=== PATIENT | male | born 1965 | race Caucasian/White ===

== ENCOUNTER 2019-10-18 05:48 | Observation (INO) | payer BC ==
[2019-10-18] VITALS (19 sets, daily range): BP systolic 97–151; BP diastolic 66–101
[~2019-10-18] VITALS: Ht 177.8 cm; Wt 93.9 kg
--- NOTE | 2019-10-18 05:55 | NUR ---
PT AMBULATORY TO ROOM # 13 FOR BEDSIDE TRIAGE.
[2019-10-18 06:33] LABS: HEMATOCRIT 40.2 % (39.0-50.0); HEMOGLOBIN 13.3 g/dl (14.0-18.0); IMMATURE GRANULOCYTES 0.3 % (0.0-5.0); MEAN CORPUSCULAR HGB 30.9 pG CALC (26.0-32.0); MEAN CORPUSCULAR HGB CONC 33.1 g/dL CAL (32.0-36.0); NEUT# 5.78 thou/uL (1.82-7.42); RED BLOOD COUNT 4.31 mill/uL (4.70-6.10); RED CELL DISTRI WIDTH 13.6 % (11.5-15.5)
[2019-10-18 06:35] LABS: MEAN CELL VOLUME 93.3 fL CALC (80.0-100.0)
[2019-10-18 06:37] LABS: ALBUMIN 4.2 g/dL (3.2-5.0); AMYLASE 52 u/l (30-110); BUN 18 mg/dL (9-20); BUN/CREATININE RATIO 19 (12-20 (CALC)); CHLORIDE 105 mmol/l (95-108); CREATININE 0.9 mg/dL (0.7-1.3); GFR > 60 ML/MIN (>=60 (CALC)); GFR FOR AFR.AMER. > 60 ML/MIN (>=60 (CALC)); LIPASE 52 u/l (23-300); POTASSIUM 4.4 mmol/l (3.5-5.1); SGOT/AST 47 u/l (17-59); SODIUM 133 mmol/l (137-146); TOTAL PROTEIN 7.1 g/dL (6.3-8.2)
[2019-10-18 06:38] LABS: ALKALINE PHOSPHATASE 121 u/l (38-126); ANION GAP 13 (6-22 (CALC)); BILIRUBIN, TOTAL 2.8 mg/dL (0.0-1.4); CARBON DIOXIDE 19 mmol/l (22-30)
[2019-10-18 06:39] LABS: INTERNATIONAL NORMALIZED RATIO 1.3 RATIO (0.7-1.3)
[2019-10-18 06:49] LABS: MYOGLOBIN 35 ng/mL (0 - 121)
--- NOTE | 2019-10-18 06:55 | NUR ---
PT SKIN PWD, NO DISTRESS, NO CP NO SOB. PT STATES HE IS FEELING BETTER AND NOT SOB AT THIS TIME. VSS. CARDIZEM GTT CONTINUES AT 10 MG/HR AN HOUR. ZOSYN INFUSING. URINE COLLECTED. PT UPDATED ON POC. PT HAS HOUSE ARREST ANKLE MONITOR TO RT ANKLE.
--- NOTE | 2019-10-18 07:49 | NUR ---
PT UPDATED ON POC AND PLAN TO ADMIT. PT AGREEABLE. VSS. PT DENIES SOB.
[2019-10-18] MEDS ORDERED: CEPHALEXIN500 MG PO (07:51)
[2019-10-18] MEDS ORDERED: METOPROL TAR25 MG PO (07:52)
[2019-10-18] MEDS ORDERED: CYCLOBENZAPR5 MG PO (07:52)
[2019-10-18] MEDS ORDERED: EC ASPIRIN325 MG PO (07:53)
--- NOTE | 2019-10-18 08:15 | NUR ---
PT RESTING SUPIN IN NO DISTRESS. VSS. GIVEN PO GATORADE. AWAITING RESULTS AND DISPOSITION
[2019-10-18 08:16] LABS: URINE BILIRUBIN - DIPSTICK NEGATIVE (NEGATIVE); URINE BLOOD DIPSTICK TRACE-INTACT (NEGATIVE); URINE COLOR YELLOW; URINE GLUCOSE - DIPSTICK NEGATIVE (NEGATIVE); URINE KETONE NEGATIVE (NEGATIVE); URINE LEUK ESTERASE NEGATIVE (NEGATIVE); URINE NITRITE - DIPSTICK NEGATIVE (Negative); URINE PROTEIN - DIPSTICK NEGATIVE (NEG-TRACE); URINE SPECIFIC GRAVITY <=1.005; URINE UROBILINOGEN - DIPSTICK 0.2 E.U./dL (0.2)
--- NOTE | 2019-10-18 09:15 | NUR ---
PT ALERT AND IN NO DISTRESS. AWAITING ADMIT AND PT AGREEABLE
--- NOTE | 2019-10-18 10:00 | NUR ---
PT TRANSPORTED TO ICU ON CONTINUOUS ONCOLOGY PHYSICIAN ASSISTANT IN NO DISTRESS
--- NOTE | 2019-10-18 10:05 | NUR ---
PT TO ICU BED 5 VIA STRETCHER ACCOMPANIED BY ER NURSE. PT ABLE TO TRANSFER SELF TO BED. PT IS ALERT AND ORIENTED X3. ADMISSION ASSESSMENT COMPLETED AT THIS TIME. IV PATENT X2. ORIENTED TO ROOM AND UNIT. PT DOES HAVE PROBATION ANKLET IN PLACE AND WILL NEED TO LEAVE IN PLACE. CALL LIGHT IN REACH. WILL CONTINUE TO MONITOR.
--- NOTE | 2019-10-18 11:30 | NUR ---
SET UP FOR NOON MEAL AT THIS TIME.
--- NOTE | 2019-10-18 11:45 | NUR ---
IV site discontinued, cath intact. No edema , no redness, voices no discomfort.
--- NOTE | 2019-10-18 11:55 | NUR ---
DC INSTRUCTIONS REVIEWED WITH PATIENT. ALL REFERRALS GIVEN. BEST HANDLEY PRESENT WELL. PT VERBALIZED UNDERSTANDING.
--- NOTE | 2019-10-18 12:13 | NUR ---
LAB AT BEDSIDE AT THIS TIME.
--- NOTE | 2019-10-18 13:34 | NUR ---
PT RESTING IN BED WITH EYES CLOSED. RESP ARE EVEN AND UNLABORED. NO DISTRESS NOTED. CALL LIGHT IN REACH. WILL CONTINUE TO MONITOR.
--- NOTE | 2019-10-18 13:55 | NUR ---
Dakota CAMPBELL AT BEDSIDE AT THIS TIME.
--- NOTE | 2019-10-18 15:18 | NUR ---
PT SITTING UP O SIDE OF BED TALKING ON PHONED RESP ARE EVEN AND UNLABORED. NO DISTRESS NOTED. CALL LIGHT IN REACH. WILL CONTINUE TO MONITOR
--- NOTE | 2019-10-18 16:05 | NUR ---
APOLLO HOLLY APRN AT BEDSIDE AT THIS TIME.
--- NOTE | 2019-10-18 17:30 | NUR ---
PT SITTING UP ON SIDE OF EATING DINNER. RESP ARE EVEN AND UNLABORED. NO DISTRESS NOTED. CALL LIGHT IN REACH. WILL CONTINUE TO MONITOR
--- NOTE | 2019-10-18 18:15 | NUR ---
LAB AT BEDSIDE AT THIS TIME
--- NOTE | 2019-10-18 19:15 | NUR ---
awake. denies distress. modeling instructor shows a fib occas paced beats hr 78. #18 rac cardizem gtt infusing @ 10mg hr. #20 lt hand saline lock. po fluids taken well. voids per bsc. fall & air/contact precautions cont.
--- NOTE | 2019-10-18 22:00 | NUR ---
talking on cell phone. no distress. awake overnight monitor shows a fib occas paced beats hr 76.
[2019-10-19] VITALS (47 sets, daily range): BP systolic 87–146; BP diastolic 50–98
--- NOTE | 2019-10-19 00:01 | NUR ---
eyes closed. no distress. monitor and storage bin tender shows a fib occas paced beats hr 72.
--- NOTE | 2019-10-19 02:00 | NUR ---
resting quietly. resps even & unlabored. no apparent distress.
--- NOTE | 2019-10-19 04:00 | NUR ---
eyes closed. no apparent distress. cardiac cath lab technologist shows a fib occas paced beats hr 74.
--- NOTE | 2019-10-19 04:38 | NUR ---
lab here. blood drawn.
[2019-10-19 04:58] LABS: HEMATOCRIT 37.9 % (39.0-50.0); HEMOGLOBIN 12.3 g/dl (14.0-18.0); MEAN CELL VOLUME 94.5 fL CALC (80.0-100.0); MEAN CORPUSCULAR HGB 30.7 pG CALC (26.0-32.0); MEAN CORPUSCULAR HGB CONC 32.5 g/dL CAL (32.0-36.0); RED BLOOD COUNT 4.01 mill/uL (4.70-6.10); RED CELL DISTRI WIDTH 13.7 % (11.5-15.5)
[2019-10-19 05:20] LABS: ANION GAP 10 (6-22 (CALC)); BUN 21 mg/dL (9-20); BUN/CREATININE RATIO 20 (12-20 (CALC)); CALCULATED LDLCHOLESTEROL 61 mg/dL (62-129 (CALC)); CARBON DIOXIDE 25 mmol/l (22-30); CHLORIDE 103 mmol/l (95-108); CHOLESTEROL HDL RATIO 3.9 (<4.4 (CALC)); CREATININE 1.1 mg/dL (0.7-1.3); GFR > 60 ML/MIN (>=60 (CALC)); GFR FOR AFR.AMER. > 60 ML/MIN (>=60 (CALC)); HDL CHOLESTEROL 25 mg/dL (>=40); POTASSIUM 4.3 mmol/l (3.5-5.1); SODIUM 134 mmol/l (137-146); TOTAL CHOLESTEROL 97 mg/dl (0-199); TOTAL TRIGLYCERIDES 57 mg/dl (30-149); VLDL CHOLESTROL 11 mg/dl (8-62 (CALC))
--- NOTE | 2019-10-19 06:00 | NUR ---
no acute change in condition. pvc monitor shows a fib occas paced beats.
--- NOTE | 2019-10-19 06:45 | NUR ---
REPORT RECEIVED FROM MJ CAGE. CARE ASSUMED.
--- NOTE | 2019-10-19 07:20 | NUR ---
PT RESTING IN BED AWAKE. PT IS ALERT AND ORIENTED X3. SHIFT ASSESSMENT COMPLETED AT THIS TIME. IV PATENT X2. CARDIZEM TITRATED PER CHARTING. CALL LIGHT IN REACH. WILL CONTINUE TO MONITOR.
--- NOTE | 2019-10-19 07:45 | NUR ---
[employer] PACEMAKER INTERROGATED AT THIS TIME.
--- NOTE | 2019-10-19 07:58 | NUR ---
DR CUELLAR AT BEDSIDE.
--- NOTE | 2019-10-19 09:15 | NUR ---
RECEIVED PACEMAKER INTERROGATION REPORT AND FAXED TO DR FERGUSON'S OFFICE.
--- NOTE | 2019-10-19 10:00 | NUR ---
PT SITTING UP ON SIDE OF BED. VSS ON MONITOR. RESP ARE EVEN AND UNLABORED. NO DISTRESS NOTED. CALL LIGHT IN REACH. WILL CONTINUE TO MONITOR.
--- NOTE | 2019-10-19 12:00 | NUR ---
PT SITTING UP ON SIDE OF BED EATING LUNCH. RESP ARE EVEN AND UNLABORED. VSS ON MONITOR. CALL LIGHT IN REACH. WILL CONTINUE TO MONITOR.
--- NOTE | 2019-10-19 13:40 | NUR ---
REALTY SPECIALIST AT BEDSIDE AT THIS TIME.
--- NOTE | 2019-10-19 16:00 | NUR ---
PT RESTING IN BED AWAKE AND WATCHING TV. RESP ARE EVEN AND UNLABORED. NO DISTRESS NOTED. CALL LIGHT IN REACH. WILL CONTINUE TO MONITOR.
--- NOTE | 2019-10-19 18:00 | NUR ---
PT RESTING IN BED AWAKE. RESP ARE EVEN AND UNLABORED. NO DISTRESS NOTED. CALL LIGHT IN REACH. WILL CONTINUE TO MONITOR.
--- NOTE | 2019-10-19 19:30 | NUR ---
awake. denies distress. athletic monitor shows a fib hr 114. #18 rac & #20 lt hand saline locks. po fluids taken well. voids per urinal. fall precautions cont.
--- NOTE | 2019-10-19 22:00 | NUR ---
watching tv. no distress. business performance specialist shows a fib hr 110.
[2019-10-20] VITALS (11 sets, daily range): BP systolic 93–140; BP diastolic 73–96
--- NOTE | 2019-10-20 00:01 | NUR ---
eyes closed. no distress. hotel assistant manager shows a fib occas paced beats hr 84.
--- NOTE | 2019-10-20 02:00 | NUR ---
resting quietly. resps even & unlabored. no apparent distress.
--- NOTE | 2019-10-20 04:00 | NUR ---
eyes closed. no distress. logistics management specialist shows a fib occas paced beats hr 110.
--- NOTE | 2019-10-20 05:47 | NUR ---
eyes closed. no distress. director of cardiac cath lab shows a fib occas paced beats hr 92.
--- NOTE | 2019-10-20 08:14 | NUR ---
REPORT RECEIVED FROM MJ CAGE. CARE ASSUMED. ASSESSSMENT AND VITALS COMPLETE. PT IS ALERT AND ORIETED X3 AND AMBULATORY IN HIS ROOM. NO EVIDENCE ODF DISTRESS. LUNGS ARE CLEAR ON ROOM AIR. NO SHORTNESS OF BREATH. AFEBRILE. HEART RATE RUNS TACHY WITH MOVEMENT. IV SITE IS HEALTHY; DISCUSSED POC. CALL CHATTERJEE WITHIN REACH. WILL CONTINUE TO MONITOR.
--- NOTE | 2019-10-20 11:15 | NUR ---
OBTAINED PT FROM INESSA HENLEY. PT LAYING SUPINE IN BED, NO SIGNS OF DISTRESS. VITALS STABLE. ITEMS WITHIN REACH.
--- NOTE | 2019-10-20 13:26 | NUR ---
PATIENT SITTING ON SIDE OF BED, TALKING ON PHONE. NO COMPLAINTS OR CONCERNS AT THIS TIME. VITALS STABLE. ITEMS WITHIN REACH. BED IN LOW POSITION.
--- NOTE | 2019-10-20 15:27 | NUR ---
PATIENT LYING IN BED ON RIGHT SIDE. DENIES ANY COMPLAINTS OR CONCERNS AT THIS TIME. VITALS WNL. BED IN LOW POSITION. CALL LIGHT WITHIN REACH.
--- NOTE | 2019-10-20 17:13 | NUR ---
PATIENT SITTING ON BEDSIDE ON HIS PHONE. NO SIGNS OF DISTRESS. HR STABLE. DINNER TRAY PROVIDED.
--- NOTE | 2019-10-20 20:35 | NUR ---
ASSESSMENT COMPLETED. IV SITES X2 PATENT AND SL, FLUSHED WITH NS. MEDICAL MALPRACTICE PARALEGAL IN PLACE AND READING AFIB HR FLUCTUATING 90'S TO 110'S. B/P WNL AND MEDICATED WITH ORDERED LOPRESSOR. DENIES NEEDS/PAIN. SNACK AND FRESH WATER PROVIDED. URINAL AND BSC EMPTIED. CALL LIGHT IS IN REACH.
--- NOTE | 2019-10-20 22:00 | NUR ---
VSS. NO DISTRESS NOTED; DENIES NEEDS. VOICES NO CONCERNS. CALL LIGHT IS IN REACH.
[2019-10-21] VITALS: BP 96/76
--- NOTE | 2019-10-21 | NUR ---
PT. SITTING UP IN BED WITH NO DISTRESS NOTED. DENIES NEEDS/PAIN. ENCOURAGED TO CALL FOR ANY NEEDS. CALL LIGHT IS IN REACH.
[2019-10-21 02:00] VITALS: BP 120/80
--- NOTE | 2019-10-21 02:05 | NUR ---
RESTING IN BED WITH NO DISTRESS NOTED; DENIES NEEDS/PAIN,ENCOURAGED TO CALL FOR ANY NEEDS.
[2019-10-21 04:00] VITALS: BP 96/73
--- NOTE | 2019-10-21 04:00 | NUR ---
RESTING IN BED WITH NO DISTRESS NOTED; RESP. EVEN AND UNLABORED.
--- NOTE | 2019-10-21 05:15 | NUR ---
PT. RESTING IN BED WITH NO DISTRESS NOTED. DENIES NEEDS/PAIN. URINAL AND BSC EMPTIED. SNACK AND FRESH WATER PROVIDED. CALL LIGHT IS IN REACH.
[2019-10-21 06:00] VITALS: BP 101/67
--- NOTE | 2019-10-21 07:05 | NUR ---
PATIENT SITTING ON SIDE OF BED. A&OX3. DENIES ANY PAIN OR NEEDS AT THIS TIME. VITALS STABLE ON MONITOR. BED IN LOW POSITION. CALL LIGHT WITHIN REACH.
[2019-10-21 08:54] LABS: ANION GAP 11 (6-22 (CALC)); BUN 15 mg/dL (9-20); BUN/CREATININE RATIO 18 (12-20 (CALC)); CARBON DIOXIDE 28 mmol/l (22-30); CHLORIDE 101 mmol/l (95-108); CREATININE 0.9 mg/dL (0.7-1.3); GFR > 60 ML/MIN (>=60 (CALC)); GFR FOR AFR.AMER. > 60 ML/MIN (>=60 (CALC)); POTASSIUM 4.4 mmol/l (3.5-5.1); SODIUM 136 mmol/l (137-146)
--- NOTE | 2019-10-21 09:15 | NUR ---
PATIENT AMBULATED TO BATHROOM WITHOUT DIFFICULTY. BMX1. PLACED BACK ON MONITOR. NO FURTHER NEEDS OR CONCERNS.
--- NOTE | 2019-10-21 10:30 | NUR ---
SEED SORTER WITH LIFE VEST AT BEDSIDE TO APPLY, EDUCATE AND INSTRUCT PT ON LIFE VEST USE.
--- NOTE | 2019-10-21 11:28 | NUR ---
LIFE VEST IN PLACE. WILL ADVISE DR. COLVIN. VITALS REMAIN STABLE. LUNCH PROVIDED. PERSONAL ITEMS AND CALL LIGHT WITHIN REACH.
[2019-10-21 12:00] VITALS: BP 114/82
[2019-10-21] MEDS ORDERED: LOPRESSOR 550 MG/TAB PO (12:47)
[2019-10-21] MEDS ORDERED: SPIRONOLACT50 MG PO (12:47)
[2019-10-21] MEDS ORDERED: XARELTO20 MG PO (12:47)
[2019-10-21] MEDS ORDERED: ASPIRIN ADULT L81 M2 PO (12:48)
[2019-10-21] MEDS ORDERED: DIGOX250 MCG PO (12:49)
--- NOTE | 2019-10-21 13:30 | NUR ---
PATIENT BEING DISCHARGED AT THIS TIME. PAPERWORK, EDUCATION AND INSTRUCTIONS PROVIDED. [employer] ID#[id number]. ALL PERSONAL ITEMS WITH PATIENT, TRANSPORTED DOWNSTAIRS VIA WHEELCHAIR.
== END 2019-10-21 13:30 | disposition home or self-care (01) | DRG 309 ==
LOC: ED 05:48 → ED-I 07:50 → ED 08:08 → ICU 08:09
PROVIDERS: Emergency Medicine; Internal Medicine; Nurse Practitioner; ADMIT Internal Medicine; ATTEND Internal Medicine
DX: I48.20 Chronic atrial fibrillation, unspecified (principal); I50.22 Chronic systolic (congestive) heart failure; R19.7 Diarrhea, unspecified; T45.516A Underdosing of anticoagulants, initial encounter; Z91.128 Patient's intentional underdosing of medication regimen for other reason; Z79.82 Long term (current) use of aspirin; Z87.891 Personal history of nicotine dependence; Z95.0 Presence of cardiac pacemaker; Z20.828 Contact with and (suspected) exposure to other viral communicable diseases
CPT/HCPCS: J1160; J1650; Q9967

== ENCOUNTER 2020-01-11 08:25 | Observation (INO) | payer BC ==
[~2020-01-11] VITALS: Ht 177.8 cm; Wt 99.9 kg
[~2020-01-11 08:25] MED LIST: ASPIRIN ADULT L81 M2 PO; CEPHALEXIN500 MG PO; CYCLOBENZAPR5 MG PO; DIGOX250 MCG PO; EC ASPIRIN325 MG PO; LOPRESSOR 550 MG/TAB PO; METOPROL TAR25 MG PO; SPIRONOLACT50 MG PO; XARELTO20 MG PO
--- NOTE | 2020-01-11 08:40 | NUR ---
PT SEEN BY PROVIDER AWAITING RESULTS OF LAB , PT APPEARS TO NOT BE IN ACUTE DISTRESS
[2020-01-11 08:46] LABS: HEMATOCRIT 35.4 % (39.0-50.0); HEMOGLOBIN 11.8 g/dl (14.0-18.0); IMMATURE GRANULOCYTES 0.4 % (0.0-5.0); MEAN CELL VOLUME 93.2 fL CALC (80.0-100.0); MEAN CORPUSCULAR HGB 31.1 pG CALC (26.0-32.0); MEAN CORPUSCULAR HGB CONC 33.3 g/dL CAL (32.0-36.0); NEUT# 10.08 thou/uL (1.82-7.42); RED BLOOD COUNT 3.8 mill/uL (4.70-6.10); RED CELL DISTRI WIDTH 13.7 % (11.5-15.5)
[2020-01-11] MEDS ORDERED: DILTIAZEM90 M1 PO (08:57)
[2020-01-11] MEDS ORDERED: LISINOPRIL2.5 MG PO ×2 (08:58→12:06)
[2020-01-11 09:13] LABS: ANION GAP 9 (6-22 (CALC)); BUN 21 mg/dL (9-20); BUN/CREATININE RATIO 28 (12-20 (CALC)); CARBON DIOXIDE 26 mmol/l (22-30); CHLORIDE 106 mmol/l (95-108); CREATININE 0.8 mg/dL (0.7-1.3); GFR > 60 ML/MIN (>=60 (CALC)); GFR FOR AFR.AMER. > 60 ML/MIN (>=60 (CALC)); POTASSIUM 4.5 mmol/l (3.5-5.1); SODIUM 137 mmol/l (137-146)
[2020-01-11] MEDS ORDERED: DILTIAZEM CD180 MG PO (12:07)
[2020-01-11] MEDS ORDERED: SPIRONOLACTONE50 MG PO (12:08)
[2020-01-11 12:50] VITALS: BP 108/74
--- NOTE | 2020-01-11 12:50 | NUR ---
PATIENT RECEIVED FROM ER AT THIS TIME. PATIENT ALERT AND ORIENTED X3. PATIENT ORIENTED TO ROOM AND SURROUNDINGS. PATIENT ASSESSED AND SHOWS NO SIGNS OF SKIN ISSUES ON BODY. PATIENT STATES HIS PAIN LEVEL IS A 4 AND THAT THE NITRO THAT WAS GIVEN TO HIM IN ER HELPED. ALL SAFETY MEASURES ARE IN PLACE CALL LIGHT NEAR AND PATIENT ADVISED TO CALL FOR HELP NEEDED. LUNCH WAS PROVIDED FOR PATIENT AT THIS TIME. PATIENT DOES HAVE A COURT ORDERED ELECTRONIC ANKLE BR[place]LETT LOCATED ON HIS RIGHT ANKLE AND PRISONER CLASSIFICATION INTERVIEWER LOCATED ON BEDSIDE TABLE.
[2020-01-11 13:25] LABS: URINE BILIRUBIN - DIPSTICK NEGATIVE (NEGATIVE); URINE BLOOD DIPSTICK SMALL (NEGATIVE); URINE COLOR YELLOW; URINE GLUCOSE - DIPSTICK NEGATIVE (NEGATIVE); URINE KETONE NEGATIVE (NEGATIVE); URINE LEUK ESTERASE NEGATIVE (NEGATIVE); URINE NITRITE - DIPSTICK NEGATIVE (Negative); URINE PH 5.5 (4.5-8.0); URINE PROTEIN - DIPSTICK NEGATIVE (NEG-TRACE); URINE UROBILINOGEN - DIPSTICK 0.2 E.U./dL (0.2)
[2020-01-11 13:31] LABS: URINE RBC 0-2 RBC/hpf (0-5)
--- NOTE | 2020-01-11 15:52 | NUR ---
PATIENT IN BED RESTING AT THIS TIME WATCHING TV. PATIENT STATES HIS PAIN LEVEL IS A 3 OUT OF A PAIN SCALE OF 0-10. PATIENT TELE IN PLACE AND PATIENT DENIES ALL OTHER NEEDS AT THIS TIME.
[2020-01-11 15:55] VITALS: BP 111/69
[2020-01-11 19:00] VITALS: BP 98/63
--- NOTE | 2020-01-11 19:30 | NUR ---
PATIENT UP IN THE ROOM-STEADY ON HIS FEET. ALERT AND ORIENTEDX3. PATIENT STATES THAT HIS CHEST PAIN IS MUCH BETTER THAN ON ADMISSION-3/10 ON PAIN SCALE. TELE MONITOR IN PLACE-SHOWS PACED AT 83. STATES THAT HE IS VOIDING WITHOUT ANY DIFFICULTY. SALINE LOCK TO LAC INTACT AND HEALTHY AT THIS TIME. SAFETY PRECAUTIONS REINFORCED. CALL LIGHT IN REACH. WILL CONT TO MONITOR.
--- NOTE | 2020-01-11 21:00 | NUR ---
PATIENT RESTING IN BED-NO COMPLAINTS AT THIS TIME. LAST TROP WAS NEG. PATIENT PROVIDED WITH HS SNACK. CALL LIGHT IN REACH, WILL CONT TO MONITOR.
[2020-01-12] VITALS: BP 95/60
--- NOTE | 2020-01-12 02:14 | NUR ---
PATIENT APPEARS SLEEPING AT THIS TIME WITH EYES CLOSED. RESPS ARE EVEN AND UNLABORED. TELE MONITOR IN PLACE. CALL LIGHT IN REACH,. WILL CONT TO MONITOR.
[2020-01-12 04:00] VITALS: BP 105/65
--- NOTE | 2020-01-12 06:00 | NUR ---
PATIENT RESTING IN BED-NO COMPLAINTS. TELE MONITOR IN PLACE. CALL LIGHT IN REACH. WILL CONT TO MONITOR.
[2020-01-12 06:52] VITALS: BP 100/66
--- NOTE | 2020-01-12 07:10 | NUR ---
REPORT RECEIVED FROM INESSA TARANGO;PT RESTING IN SEMI FOWLERS POSITION;INTRODUCED SELF TO PT AND POC DISCUSSED;RESPIRATIONS EVEN AND UNLABORED ON RA;PT DENIES ANY CURRENT PAIN OR DISCOMFORTS;TELE MONITORING IN PLACE;PT ENCOURAGED TO CALL FOR ASSISTANCE IF NEEDED;FALL PRECAUTIONS IN PLACE WITH BED IN THE LOWEST POSITION AND CALL LIGHT IN REACH;WILL CONTINUE TO MONITOR
--- NOTE | 2020-01-12 07:52 | NUR ---
LAB AT BEDSIDE
[2020-01-12 08:08] LABS: HEMATOCRIT 36.9 % (39.0-50.0); HEMOGLOBIN 12.5 g/dl (14.0-18.0); IMMATURE GRANULOCYTES 0.5 % (0.0-5.0); MEAN CELL VOLUME 92.3 fL CALC (80.0-100.0); MEAN CORPUSCULAR HGB 31.3 pG CALC (26.0-32.0); MEAN CORPUSCULAR HGB CONC 33.9 g/dL CAL (32.0-36.0); NEUT# 5.07 thou/uL (1.82-7.42); RED CELL DISTRI WIDTH 13.8 % (11.5-15.5)
--- NOTE | 2020-01-12 08:17 | NUR ---
AT BEDSIDE DISCUSSING POC.
[2020-01-12 08:33] LABS: ALBUMIN 3.9 g/dL (3.2-5.0); ALKALINE PHOSPHATASE 78 u/l (38-126); BILIRUBIN, TOTAL 1.7 mg/dL (0.0-1.4); BUN 16 mg/dL (9-20); BUN/CREATININE RATIO 22 (12-20 (CALC)); CARBON DIOXIDE 27 mmol/l (22-30); CHLORIDE 102 mmol/l (95-108); CREATININE 0.7 mg/dL (0.7-1.3); GFR > 60 ML/MIN (>=60 (CALC)); GFR FOR AFR.AMER. > 60 ML/MIN (>=60 (CALC)); SGOT/AST 23 u/l (17-59); SODIUM 136 mmol/l (137-146); TOTAL PROTEIN 6.6 g/dL (6.3-8.2)
[2020-01-12 08:35] LABS: ANION GAP 11 (6-22 (CALC)); POTASSIUM 4.2 mmol/l (3.5-5.1)
--- NOTE | 2020-01-12 08:35 | NUR ---
PT RESTING AT BEDSIDE;PT DENIES ANY CURRENT PAIN OR DISCOMFORTS,PAIN SCALE AND REPORTING EDUCATED;RESPIRATIONS EVEN AND UNLABORED ON RA,CLEAR LUNG SOUNDS;ABDOMEN SOFT ON PALPATION AND ACTIVE IN ALL 4 QUADRANTS;STRONG PEDAL PULSES;SKIN INTACT;TELE MONITORING IN PLACE;#20G TO LAC FLUSHED AND PATENT,SITE APPEARS HEALTHY;PT DENIES ANY ADDITIONAL NEEDS AT THIS TIME AND IS ENCOURAGED TO CALL FOR ASSISTANCE IF NEEDED;FALL PRECAUTIONS IN PLACE WITH BED IN THE LOWEST POSITION AND CALL LIGHT IN REACH;WILL CONTINUE TO MONITOR
[2020-01-12] MEDS ORDERED: SPIRONOLACTONE50 MG PO (10:17)
[2020-01-12 10:30] VITALS: BP 101/67
--- NOTE | 2020-01-12 11:25 | NUR ---
ALL DISCHARGE INSTRUCTIONS PROVIDED AT THIS TIME;PT INSTRUCTED TO CONTINUE ALL CURRENT MEDICATIONS AND RESUME ALDACTONE.RX FOR ALDACTONE PROVIDED FOR D/C HOME;PT ALSO ENCOURAGED TO F/U WITH AND .WEIGHT DAILY AND LOW SALT DIET;PT VERBALIZES UNDERSTANDING AND DENIES ANY ADDITIONAL QUESTIONS OR NEEDS;IV SITE REMOVED WITH CATHETER INTACT AND TELE MONITORING D/C;PT DENIES WHEELCHAIR FOR D/C HOME;PT TO TRANSPORT SELF HOME;WILL CONTINUE TO MONITOR
--- NOTE | 2020-01-12 11:28 | NUR ---
Discharge instructions given. Patient verbalizes understanding of same. Discharged in stable condition via Wheelchair to Home with *Other. All belongings sent with pt. PT AMBULATED TO [facility] FOR D/C HOME WITH A STEADY GAIT.ALL BELONGINGS LEFT WITH PT.PT TO TRANSORT SELF HOME.
== END 2020-01-12 11:28 | disposition home or self-care (01) | DRG 313 ==
LOC: ED 08:25 → ED-I 09:53 → ED 10:21 → MS2 10:22
PROVIDERS: Family Medicine; Nurse Practitioner Family; ADMIT Internal Medicine; ATTEND Internal Medicine
DX: R07.9 Chest pain, unspecified (principal); I50.23 Acute on chronic systolic (congestive) heart failure; I11.0 Hypertensive heart disease with heart failure; I48.91 Unspecified atrial fibrillation; Z95.0 Presence of cardiac pacemaker; Z87.891 Personal history of nicotine dependence; Z82.49 Family history of ischemic heart disease and other diseases of the circulatory system; Z95.818 Presence of other cardiac implants and grafts; Z20.828 Contact with and (suspected) exposure to other viral communicable diseases
CPT/HCPCS: G0378; J1650